=== PATIENT | male | born 1960 | race Caucasian/White ===

== ENCOUNTER 2022-09-17 12:16 | Emergency (ER) | payer BC, OTHER ==
[2022-09-17] MEDS: Ketorolac 30 MG/ML SDV IM STA (13:06)
[2022-09-17] MEDS: Acetaminophen/HYDROcodone 325-5 MG Tab PO STA (13:08)
== END 2022-09-17 15:12 | disposition home or self-care (01) ==
LOC: FB.ED 12:16
DX: S82.832A Other fracture of upper and lower end of left fibula, initial encounter for closed fracture (principal); S70.02XA Contusion of left hip, initial encounter; I10 Essential (primary) hypertension; E11.9 Type 2 diabetes mellitus without complications; E03.9 Hypothyroidism, unspecified; E78.00 Pure hypercholesterolemia, unspecified; Z79.899 Other long term (current) drug therapy; W11.XXXA Fall on and from ladder, initial encounter
CPT/HCPCS: 72100; 73502; 73610; 73630; 96372; 99283; A9270; J1885